=== PATIENT | female | born 1955 | race Caucasian/White ===

== ENCOUNTER 2018-02-19 12:46 | Emergency (ER) | payer MEDICAID ==
[~2018-02-19] VITALS: Ht 162.6 cm; Wt 95.0 kg
[2018-02-19 12:55] VITALS: BP 110/76
[2018-02-19 13:41] LABS: MICROSCOPIC NOT IND
[2018-02-19 13:54] LABS: CULTURE INDICATED? NO
== END 2018-02-19 15:09 | disposition home or self-care (01) ==
LOC: ED 15:03
DX: R30.0 Dysuria (principal); R35.0 Frequency of micturition; R39.15 Urgency of urination; E78.5 Hyperlipidemia, unspecified; Z85.3 Personal history of malignant neoplasm of breast; Z90.10 Acquired absence of unspecified breast and nipple
CPT/HCPCS: 81003; 82962; 99283